=== PATIENT | male | born 1935 | race Caucasian/White ===

== ENCOUNTER 2024-05-30 16:32 | Emergency (ER) | payer MEDICARE, OTHER, SELFPAY ==
[2024-05-30 16:34] VITALS: BP 142/61
[2024-05-30 16:35] VITALS: BP 142/61
--- NOTE | 2024-05-30 16:52 | ED.GENMED ---
History of Present Illness
General
Chief Complaint: Fall
Source: patient
Exam Limitations: none
Time Seen by Provider: 05/30/24 16:39
Nursing documentation reviewed up to this point in time: agreed with
History of Present Illness
History of Present Illness:
This is a 89 y/o male with a PMH of hypertension, hyperlipidemia, prior CVA with right-sided weakness/flexion deformity presenting emergency department today with concerns of headache, neck pain, right arm pain following a fall. Patient is present
in room with son who reports that patient was at his facility today when he slid out of his wheelchair and fell onto his right side. Patient states that they are doing a transfer from the wheelchair to the bed. Patient reports that he did not lose
consciousness, did not have seizure-like activity. Staff at [facility] subsequently called EMS. Patient does take Plavix. Patient denies any upper extremity paresthesias. Son present in room reports that he is confused at baseline.
Past History
Past History
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
ED Past Surgical History: Orthopedic (Left hip replacement, rotator cuff, spinal surgery)
Social History
Tobacco: Former smoker
Alcohol: None
Drug: None
Personal:
Living: with family
Employment: Retired
Family History
Family History: Other (reviewed and non-contributory)
Review of Systems
Review of Systems
All Other Systems: ROS reviewed and negative except as documented in HPI and ROS
Phy Exam
Physical Exam
Physical Exam:
General: Patient is well appearing and in no acute distress; non-toxic
Skin: Warm and dry, soft tissue swelling noted over the right temporal region
Head: Normocephalic, atraumatic. TMJ joints intact bilaterally.
Eyes: Sclera non-icteric. EOMs intact.
Ears: No hemotympanum bilaterally
Neck: Mild cervical midline tenderness to palpation. No palpable bony deformities
Cardiac: Regular rate and rhythm, no tenderness palpation of the external chest wall, no signs of trauma
Pulm: Normal respiratory effort, no wheezes, rales, or rhonchi
Abdomen: No abdominal tenderness to palpation
Musculoskeletal: Tenderness palpation of the right forearm and right suprapatellar region with some mild overlying soft tissue swelling. No pain with passive range of motion of bilateral lower extremities. No palpable bony deformities.
Neuro: CN II-XII intact, chronic right sided weakness noted from prior CVA
Psychiatric: Appropriate mood and affect.
Course
Orders/Labs/Results
Orders:
Orders
05/30/24 17:19
CT Cervical Spine W/o Iv Contr Urgent
Comment:
Reason For Exam: neck pain following fall
CT Head W/o Iv Contrast Urgent
Comment:
Reason For Exam: headache following fall
CR Knee- Right 4 Or More View* Urgent
Comment:
Reason For Exam: right knee pain/swelling following fall
05/30/24 17:50
CR Forearm - Right 2 View Urgent
Comment:
Reason For Exam: right forearm pain
05/30/24 18:19
Lorazepam [Ativan] 0.5 mg PO NOW STA
Vital Signs
Initial and Last Documented VS:
Initial Vital Signs
BP
142/61
05/30/24 16:34
Last Documented Vital Signs
Temp Pulse Resp BP Pulse Ox
98 F 55 16 128/65 99
05/30/24 16:35 05/30/24 18:00 05/30/24 20:00 05/30/24 18:00 05/30/24 18:00
MDM/Problems Addressed
Differential Diagnosis Includes:
ddx include concussion, subdural hematoma, cervical strain
MDM/Problems Addressed:
Fall:
This is a 89 y/o male with a PMH of hypertension, hyperlipidemia, prior CVA with right-sided weakness/flexion deformity presenting emergency department today with concerns of headache, neck pain, right arm pain following a fall. Patient is wheel
chair bound at baseline and slid out of his chair when he was being transferred. His CT scan of the head and neck was negative for any acute abnormality, fracture. No signs of fracture in his upper ext x-ray. Patient stable for discharge back to
[facility].
Patient declined medication for pain. Prior to cat scan, patient became agitated. Son reports he takes 0.5 mg ativan as needed for agitation. He was given one dose of PO ativan with apple sauce. Patient returned to his baseline.
Chronic conditions affecting care:
dementia
*Critical Care Note
Total Time (30-74mins, 75-104mins- exclusive of procedures): Not Applicable
Data Reviewed
Review of Other/Old Records Reveals: Discharge Summary (reviewed discharge summary from 06/23/22, patient seen for AMS secondary to vascular dementia)
Source: patient and records
Prescriptions/Medications Considered But Not Given:
n/a
Further Testing Considered But Not Given:
n/a
Patient Management
Escalation/DeEscalation of care consider admission/obs:
Admit not indicated, reviewed case with my attending
ED Attending Note
-
Portions of this chart may have been created with voice recognition software.� Occasional wrong word or��sound alike� substitutions may have occurred due to the inherent limitations of voice recognition software.
Discharge Plan
Departure
Patient Disposition: Home (Routine Discharge)
Date of Disposition: 05/30/24
Time of Disposition: 20:41
Patient with high blood pressure during this ER visit?: Yes
Condition: Good
Discharge Problem:
Fall
Instructions: Preventing falls in adults, BLOOD PRESSURE
Prescriptions:
No Action
trazodone 50 mg Tablet
50 mg PO HS
acetaminophen 650 mg Tablet Extended Release
1,300 mg PO HS
Restless Leg Otc
4 tab sublingual HS
quetiapine 25 MG tablet
25 mg PO TID
sennosides [senna] 1 TABLET tablet
1 tab PO HS PRN (Reason: constipation)
famotidine 20 MG tablet
20 mg PO HS PRN (Reason: heartburn/gerd)
melatonin 5 MG tablet
20 mg PO HS
miconazole nitrate [Miconazorb AF] 2 % Powder
1 applic topical BID Qty: 0 0RF
magnesium hydroxide 400 mg/5 mL Suspension
30 ml PO HSPRN PRN (Reason: constipation) Qty: 0 0RF
acetaminophen 325 mg Tablet
650 mg PO Q4HPRN PRN (Reason: mild pain/EVANS/temp> 100.4F) Qty: 0 0RF
atorvastatin 40 MG tablet
40 mg PO QPM 0RF
metformin 500 MG tablet
1,000 mg PO BID AT 0800,1700 0RF
clonidine HCl 0.1 MG tablet
0.1 mg PO BID 0RF
metoprolol succinate 50 MG tablet extended release 24 hr
50 mg PO HS 0RF
clopidogrel 75 MG tablet
75 mg PO DAILY 0RF
spironolactone 25 MG tablet
25 mg PO DAILY 0RF
tamsulosin 0.4 MG capsule
0.4 mg PO QPM 0RF
magnesium oxide 500 MG tablet
500 mg PO DAILY 0RF
losartan 100 MG tablet
100 mg PO DAILY 0RF
duloxetine 60 MG capsule,delayed release(DR/EC)
60 mg PO DAILY 0RF
multivitamin with folic acid [Tab-A-January] 1 TABLET tablet
1 tab PO DAILY 0RF
Referrals:
Trey Gastelum I., DO [Family Provider] -
Activity Restrictions/Additional Instructions:
Please follow-up with your primary care provider in 1 week for reassessment.
Please return emergency department should you experience difficulty speaking, chest pain, shortness of breath, worsening of your headache, one-sided weakness, vomiting, diarrhea, nausea, or any other signs or symptoms concerning you.
Your CT scan today of the head was negative for any acute abnormalities, negative for any cervical spine fracture.
Interventions
Interventions:
*Risk Screen - Suicide Last Done: 05/30/24 16:35
*General Assessment Last Done: 05/30/24 16:35
*Neglect/Abuse Screening Last Done: 05/30/24 16:35
ED- Fall Risk Assessment Last Done: 05/30/24 16:35
*Nursing Disposition Last Done: 05/30/24 21:18
ED-Musculoskeletal Assessment Last Done: 05/30/24 16:35
ED- Neurological Assessment Last Done: 05/30/24 16:35
Discharge Date and Time
Discharge Date/Time: 05/30/24 21:33
Print Language: MALAY
[2024-05-30 18:00] VITALS: BP 128/65
[2024-05-30] MEDS: ATIVAN 0.5 MG PO (18:22)
== END 2024-05-30 21:33 ==
LOC: EMR 16:32
PROVIDERS: EMERGENCY PHYSICIAN Emergency Medicine; FAMILY PHYSICIAN Internal Medicine
DX: R51.9 Headache, unspecified (principal); M54.2 Cervicalgia; M79.601 Pain in right arm; W05.0XXA Fall from non-moving wheelchair, initial encounter; E11.9 Type 2 diabetes mellitus without complications; E78.00 Pure hypercholesterolemia, unspecified; F03.90 Unspecified dementia, unspecified severity, without behavioral disturbance, psychotic disturbance, mood disturbance, and anxiety; G47.30 Sleep apnea, unspecified; I10 Essential (primary) hypertension; I69.351 Hemiplegia and hemiparesis following cerebral infarction affecting right dominant side; Z79.4 Long term (current) use of insulin; Z87.891 Personal history of nicotine dependence; Z96.642 Presence of left artificial hip joint; Z99.3 Dependence on wheelchair
CPT/HCPCS: 99284; 70450; 72125; 73090; 73564

== ENCOUNTER 2024-11-04 11:54 | Emergency (ER) | payer MEDICARE, OTHER, SELFPAY ==
[2024-11-04 12:08] VITALS: BP 129/89
[2024-11-04 12:30] LABS: % Basophils 0.6 % (0-2); % Eosinophils 3.6 % (0-6); % Lymphocytes 32.8 % (20.5-51.1); Absolute Basophils 0.1 10^3/uL (0-0.2); Absolute Eosinophils 0.4 10^3/uL (0-0.7); Absolute Immature Granulocytes 0.1 10^3/uL (0-0.05); Absolute Lymphocytes 3.6 10^3/uL (1.2-3.4); Absolute Monocytes 0.7 10^3/uL (0.1-0.6); Absolute Neutrophils 6.1 10^3/uL (1.4-6.5); Hematocrit 33.9 % (39.0-52.0); Hemoglobin 10.8 g/dL (13.0-18.0); Mean Corp Hgb Conc. 31.9 g/dL (33.0-37.0); Mean Corpuscular Hgb 28.7 pg (27.0-31.0); Mean Corpuscular Volume 90.2 fL (80.0-94.0); Mean Platelet Volume 8.9 fL (7.4-10.4); Nucleated Red Blood Cells % 0 % (-); Platelet Count 299 10^3/uL (130-400); Red Blood Cell Count 3.76 10^6/uL (4.70-6.10); Red Cell Dist. Width 12.4 % (11.5-14.5)
[2024-11-04 12:45] LABS: ALT (SGPT) < 10 U/L (0-50); AST (SGOT) 13 U/L (17-59); Albumin 3.4 g/dl (3.5-5.0); Alkaline Phosphatase 66 U/L (38-126); Blood Urea Nitrogen 38 mg/dl (9-20); Calcium 9.3 mg/dl (8.4-10.2); Carbon Dioxide 23 mmol/L (22-30); Chloride 99 mmol/L (98-107); Glucose 103 mg/dl (70-99); Potassium 4.7 mmol/L (3.5-5.1); Sodium 134 mmol/L (135-145); Total Bilirubin 0.7 mg/dl (0.2-1.3); Total Protein 5.8 g/dl (6.3-8.2); eGFR 58.17
[2024-11-04 13:00] VITALS: BP 131/64
--- NOTE | 2024-11-04 13:40 | ED.GENMED ---
History of Present Illness
General
Chief Complaint: Weakness
Time Seen by Provider: 11/04/24 12:03
History of Present Illness
History of Present Illness:
89-year-old male with history of dementia presenting to the emergency department for concern of change in mental status. Patient arrives from his nursing facility, reported that his blood pressure was low and he seemed more somnolent, sent to the
ER for further evaluation. On, patient with normal blood pressure. reports that he seems slightly more agitated than typical, however is in his usual mental status. Patient reports feeling hungry and cold. Overall limited historian given
his dementia. Denies chest pain or difficulty breathing. Denies any present abdominal pain. No report of recent fever or illness. does note that patient has been having overall decreased p.o. intake, progressive decline. No additional
history obtained at this time
Past History
Past History
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
ED Past Surgical History: Orthopedic (Left hip replacement, rotator cuff, spinal surgery)
Social History
Tobacco: Former smoker
Alcohol: None
Drug: None
Personal:
Living: with family
Employment: Retired
Family History
Family History: Other (reviewed and non-contributory)
Phy Exam
Physical Exam
Physical Exam:
General: Well-appearing, no clinical signs of dehydration, nontoxic and in no acute distress
HEENT: protecting airway
Neck: appears supple
CV: Normal heart rate, regular rhythm
Resp: No accessory muscle use, no increased work of breathing, lungs clear to auscultation bilaterally
Abd: Soft and non-distended, no tenderness to palpation
Extremities: No deformities, no swelling
Neuro: alert, disoriented to time and place
: deferred
Rectal: deferred
Psych: Normal affect
Skin: Intact
Course
Orders/Labs/Results
Orders:
Orders
11/04/24 12:16
CMP [Comprehensive Metabolic Panel] Urgent
Complete Blood Count/With Diff Urgent
11/04/24 12:48
CT Head W/o Iv Contrast Urgent
Comment:
Reason For Exam: AMS, dementia
CR Chest - 2 Views Urgent
Comment:
Reason For Exam: cough
11/04/24 14:15
Urinalysis Reflex To Culture Urgent
Date Specimen was Collected: 11/04/24
Time Specimen was Collected: 14:03
Urine Microscopic Reflex Cult Urgent
11/04/24 14:36
0.9% Sodium Chloride 1000 ml [Nss] 1,000 ml IV BOLUS
Abnormal Lab Results
11/04/24 11/04/24
12:16 14:15
WBC 11.0 H 10^3/uL
(4.8-10.8)
RBC 3.76 L 10^6/uL
(4.70-6.10)
Hgb 10.8 L g/dL
(13.0-18.0)
Hct 33.9 L %
(39.0-52.0)
MCHC 31.9 L g/dL
(33.0-37.0)
Abs Immat Gran (auto) 0.1 H 10^3/uL
(0-0.05)
Absolute Lymphs (auto) 3.6 H 10^3/uL
(1.2-3.4)
Absolute Monos (auto) 0.7 H 10^3/uL
(0.1-0.6)
Immature Gran % 1.0 H %
(0-0.5)
Sodium 134 L mmol/L
(135-145)
BUN 38 H mg/dl
(9-20)
Glucose 103 H mg/dl
(70-99)
AST 13 L U/L
(17-59)
Total Protein 5.8 L g/dl
(6.3-8.2)
Albumin 3.4 L g/dl
(3.5-5.0)
Urine Bacteria (Reflex) Few A
(Negative)
Urine Albumin (Reflex) 2+ A
(Neg - Trace)
11/04/24 12:16
11/04/24 12:16
Vital Signs
Initial and Last Documented VS:
Initial Vital Signs
Temp Pulse Resp Pulse Ox
97.8 F 68 16 98
11/04/24 12:07 11/04/24 12:07 11/04/24 12:07 11/04/24 12:07
Last Documented Vital Signs
Temp Pulse Resp Pulse Ox
97.8 F 68 16 98
11/04/24 12:07 11/04/24 12:07 11/04/24 12:07 11/04/24 12:07
MDM/Problems Addressed
MDM/Problems Addressed:
89-year-old male with history of dementia presenting to the emergency department for concern of low blood pressure and change in mental status. Vital signs on arrival are normal
On exam, patient is well-appearing, nontoxic, no acute distress. at bedside, reports that patient in his usual mental status, slightly more agitated. Unclear events preceding arrival. Blood pressure at this time is within normal limits.
Will screen with laboratory analysis and CT brain imaging. Will also check urinalysis.
15:10 -patient's chest x-ray without any sign of infiltrate. CT of the brain is negative. Labs are unremarkable. Urine without sign of infection. Patient tolerating p.o. at bedside. At this time feel that he is stable for discharge back to
nursing facility. Vitals remained stable, normal blood pressure. Did update at bedside. Return precautions discussed and patient verbalized understanding
*Critical Care Note
Total Time (30-74mins, 75-104mins- exclusive of procedures): Not Applicable
ED Attending Note
-
Portions of this chart may have been created with voice recognition software.� Occasional wrong word or��sound alike� substitutions may have occurred due to the inherent limitations of voice recognition software.
Discharge Plan
Departure
Prescriptions:
No Action
trazodone 50 mg Tablet
125 mg PO HS
quetiapine 25 MG tablet
87.5 mg PO TID
famotidine 20 MG tablet
20 mg PO HS
melatonin 5 MG tablet
20 mg PO HS
magnesium hydroxide 400 mg/5 mL Suspension
30 ml PO HSPRN PRN (Reason: constipation) Qty: 0 0RF
acetaminophen 325 mg Tablet
650 mg PO Q4HPRN PRN (Reason: mild pain/EVANS/temp> 100.4F) Qty: 0 0RF
loperamide 2 mg Capsule
2 mg PO Q6H PRN (Reason: diarrhea)
hydrocodone-acetaminophen 5-325 mg Tablet
1 tab PO Q6H PRN (Reason: severe pain)
donepezil 10 mg tablet
10 mg PO HS
cyanocobalamin (vitamin B-12) [Vitamin B-12] 1,000 mcg Tablet
5,000 mcg PO DAILY
folic acid 400 mcg Tablet
0.4 mg PO DAILY
lorazepam 0.5 mg tablet
0.5 mg PO BID
bisacodyl [Dulcolax (bisacodyl)] 10 mg Suppository
10 mg MT DAILY PRN (Reason: no BM x 3 days)
doxycycline hyclate 100 mg tablet
100 mg PO BID
Rx Instructions:
11/04/24: start 2/6 x 10 days
memantine 5 mg tablet
5 mg PO HS
duloxetine 20 mg capsule,delayed release(DR/EC)
20 mg PO DAILY
Systane (PF) 0.4-0.3 % Dropperette
1 drp BOTH EYES Q8HPRN PRN (Reason: dry eye)
lidocaine 4 % Gel
1 applic TOPICAL DAILYPRN PRN (Reason: lower back, left shoulder pain)
atorvastatin 40 MG tablet
40 mg PO DAILY
miconazole nitrate [Miconazorb AF] 2 % powder
1 applic topical BID
magnesium oxide 500 MG tablet
400 mg PO DAILY
metformin 500 MG tablet
1,000 mg PO BID AT 0800,1700 0RF
clonidine HCl 0.1 MG tablet
0.1 mg PO BID 0RF
Rx Instructions:
hold for SBP<110
metoprolol succinate 50 MG tablet extended release 24 hr
50 mg PO HS 0RF
Rx Instructions:
hold for SBP<110
clopidogrel 75 MG tablet
75 mg PO DAILY 0RF
spironolactone 25 MG tablet
25 mg PO DAILY 0RF
tamsulosin 0.4 MG capsule
0.4 mg PO QPM 0RF
losartan 100 MG tablet
100 mg PO DAILY 0RF
Referrals:
Trey Gastelum I., DO [Family Provider] -
Interventions
Interventions:
*Risk Screen - Suicide Last Done: 11/04/24 12:07
*General Assessment Last Done: 11/04/24 12:07
*Neglect/Abuse Screening Last Done: 11/04/24 12:07
ED- Fall Risk Assessment Last Done: 11/04/24 12:07
ED- Cardiac Assessment Last Done: 11/04/24 12:07
ED- Neurological Assessment Last Done: 11/04/24 12:07
ED- Pulmonary Assessment Last Done: 11/04/24 12:07
Discharge Date and Time
Print Language: SUDANESE
[2024-11-04 14:14] VITALS: BP 128/61
[2024-11-04 14:25] LABS: Urine Albumin 2+ (Neg - Trace); Urine Bilirubin Negative (Negative); Urine Character Clear (Clear); Urine Color Yellow; Urine Glucose Negative (Negative); Urine Ketone Negative (Negative); Urine Leukocyte Negative (Negative); Urine Nitrite Negative (Negative); Urine Occult Blood Negative (Negative); Urine Specific Gravity 1.015 (<1.030); Urine Urobilinogen Negative (Neg - 1+)
[2024-11-04 14:32] LABS: Urine Bacteria Few (Negative); Urine Red Blood Cell 0-2 /HPF (0-2); Urine Squamous Cell 0-2 /LPF (Few); Urine White Cell 0-2 /HPF (0-5)
[2024-11-04] MEDS: NSS 1000 IV (14:56)
[2024-11-04 15:00] VITALS: BP 121/107
[2024-11-04 16:01] VITALS: BP 112/98
== END 2024-11-04 17:23 | disposition home or self-care (01) ==
LOC: EMR 11:54
PROVIDERS: EMERGENCY PHYSICIAN Student in an Organized Health Care Education/Training Program; FAMILY PHYSICIAN Internal Medicine
DX: R41.82 Altered mental status, unspecified (principal); F03.93 Unspecified dementia, unspecified severity, with mood disturbance; Z87.891 Personal history of nicotine dependence
CPT/HCPCS: 99285; 96360; 96361; 70450; 71046; 80053; 81003; 81015; 85025